=== PATIENT | female | born 1995 | race Caucasian/White ===

== ENCOUNTER → 2017-09-07 | Outpatient (CLI) | payer BC ==
[2017-09-07 15:52] LABS: BASO % 0.6 % (0.0-2.0); EOS # 0.2 (0.0-0.7); EOS % 4.4 % (0-4.0); GRAN # 3.2 (1.4-6.5); GRAN % 63.4 % (42.2-75.2); HEMATOCRIT 44.3 % (35.0-45.0); HEMOGLOBIN 14.6 g/dl (12.0-15.0); LYMPH # 1.2 (1.2-3.4); MEAN CELL VOLUME 89 fl (80.0-95.0); MEAN CORPUSCULAR HEMOGLOBIN 29 pg (26.0-32.0); MEAN CORPUSCULAR HGB CONC 33 g/dl (33.0-37.0); MEAN PLATELET VOLUME 10.2 fl (7.4-10.4); MONO # 0.4 (0.1-0.6); MONO % 7.4 % (1.7-9.3); PLATELET COUNT 291 K/mm3 (130-400); RED BLOOD COUNT 4.99 M/mm3 (4.10-5.30); REDCELL DISTRIBUTION WIDTH-CV 13.2 % (11.5-14.5)
== END ==
LOC: COL.LAB 10:13
PROVIDERS: Family Medicine
DX: L68.0 Hirsutism (principal); R53.83 Other fatigue

== ENCOUNTER → 2017-09-13 | Outpatient (CLI) | payer BC | LOC: COL.RAD 13:25 | DX: R10.32 Left lower quadrant pain (principal); L68.0 Hirsutism ==

== ENCOUNTER 2020-09-15 22:13 | Outpatient (CLI) | payer MEDICAID ==
[~2020-09-15] VITALS: Ht 165.1 cm; Wt 60.0 kg
--- NOTE | 2020-09-15 22:00 | NUR ---
Discharge instructions reviewd with pt and boyfriend. Questions invited and answered. 7600 Ambulatory off unit.
--- NOTE | 2020-09-15 22:20 | NUR ---
Ambulatory to unit, accompanied by significant other for assessment. Pt anxious, tearful, reports decreased movement "for the last couple of days, even less active today" Oriented to room, monitor, plan of care. FHT's readily obtained with audible movements.
[2020-09-15 22:30] VITALS: BP 116/75; PULSE 96; TEMP 97.8
--- NOTE | 2020-09-15 22:40 | NUR ---
EFM tracing on monitor screen reviewed with pt, acceleration pointed out. Discussed with pt that movemtn in last trimester 'feel different' as baby gets bigger and is more settled into pelvis with less room to move around.
[2020-09-15] MEDS ORDERED: PRENATAL TABLET PO (22:47)
== END 2020-09-15 23:05 | disposition home or self-care (01) ==
LOC: LDRO 22:13 → LDR 22:20 → LDRO 23:05
DX: O36.8130 Decreased fetal movements, third trimester, not applicable or unspecified (principal); Z3A.31 31 weeks gestation of pregnancy
CPT/HCPCS: OP

== ENCOUNTER 2020-11-08 14:42 | Inpatient (IN) | payer MEDICAID ==
[2020-11-08] VITALS (21 sets, daily range): BP systolic 105–1100; BP diastolic 63–82; PULSE 75–116; TEMP 97.9–98.8
[~2020-11-08] VITALS: Ht 165.1 cm; Wt 82.7 kg
[~2020-11-08 14:42] MED LIST: PRENATAL TABLET PO
--- NOTE | 2020-11-08 14:50 | NUR ---
Patient ambulates to LR5 with significant other, changes into gown, FHR/TOCO monitors. Patient states she started mahesh this morning and then they somewhat went away and then came back and are more painful. Plan of care discussed. JENNIFER Devries RN /3 Dr. Marcano called and orders obtained.
--- NOTE | 2020-11-08 16:10 | NUR ---
Plan of care discussed and questions answered. IV started in left hand, blood obtained and to lab, flushed. Consents signed and packet given.
[2020-11-08 16:43] LABS: BASO % 0.2 % (0.0-2.0); EOS % 0.1 % (0-4.0); GRAN # 13.4 (1.4-6.5); GRAN % 87.8 % (42.2-75.2); HEMOGLOBIN 12.9 g/dl (12.5-16.0); LYMPH # 0.8 (1.2-3.4); LYMPH % 5.4 % (20.0-51.0); MEAN CELL VOLUME 84 fl (80.0-100.0); MEAN CORPUSCULAR HEMOGLOBIN 29 pg (27.0-31.0); MEAN CORPUSCULAR HGB CONC 35 g/dl (33.0-37.0); MEAN PLATELET VOLUME 9.8 fl (7.4-10.4); MONO % 6.2 % (1.7-9.3); PLATELET COUNT 245 K/mm3 (130-400); REDCELL DISTRIBUTION WIDTH-CV 12.7 % (11.5-14.5)
[2020-11-08 16:44] LABS: HEMATOCRIT 36.9 % (37.0-47.0)
--- NOTE | 2020-11-08 16:54 | NUR ---
Patient off monitors to ambulate. 1740: Patient on monitors and resting in bed. 1800: Patient off monitors and knees chest position resting in bed.
--- NOTE | 2020-11-08 18:50 | NUR ---
Pt states " I think I will ready for my epidural soon" Encouraged to go to the bathroom before placed back on EFM.
--- NOTE | 2020-11-08 19:25 | NUR ---
Felicia SAND DIGGER into room for epidural placement, see anesthesia record. Pt moved to sit on edge of bed.
--- NOTE | 2020-11-08 22:00 | NUR ---
discussed with pt possibly of augmenting labor with Pitocin, pt declines augmentation at this time.
[2020-11-09] VITALS (25 sets, daily range): BP systolic 97–129; BP diastolic 59–82; PULSE 78–118; TEMP 97.8–98.6
--- NOTE | 2020-11-09 03:45 | NUR ---
SVE ant rim. FHT's with early decels to 110's, returning to basline by end of contraction.
--- NOTE | 2020-11-09 05:20 | NUR ---
Dr Marcano into room. Willis catheter dc'd Perineal prep. [address] Marcano after explanation to pt and spouse. 0532 Vacuum reapplied. 0568 Vac assisted vaginal delivery by Dr Marcano.
--- NOTE | 2020-11-09 05:44 | NUR ---
Placenta delivers spont and intact, Pitocin gtt to bolus rate.
--- NOTE | 2020-11-09 05:48 | NUR ---
Perineal inspection complete, pericare done. Bed together.
--- NOTE | 2020-11-09 06:15 | NUR ---
Bedside report reveived from Dana RODRIGUEZ. Patient resting at this time and has no needs. 0755: Patient assisted to wheelchair and to bathroom, voids, new gown/underwear/pad on. Patient assisted to wheelchair. Plan of care discussed and to nursery to watch bath.
[2020-11-10 00:46] VITALS: BP 103/62; PULSE 101; TEMP 97.5
[2020-11-10 06:45] LABS: HEMATOCRIT 30.9 % (37.0-47.0); HEMOGLOBIN 10.6 g/dl (12.5-16.0)
[2020-11-10] MEDS ORDERED: IBU600 MG PO (08:53)
[2020-11-10 09:00] VITALS: BP 105/64; PULSE 89; TEMP 98
--- NOTE | 2020-11-10 09:55 | NUR ---
Initial visit; Parents thanked Stacker Operator for offering congratulations and God's blessings for the of their daughter. Stacker Operator thanked family for choosing [facility].
[2020-11-10 17:30] VITALS: BP 129/72; PULSE 78; TEMP 98
[2020-11-10 21:30] VITALS: BP 107/67; PULSE 108; TEMP 98.1
[2020-11-11 09:00] VITALS: BP 108/88; PULSE 102; TEMP 99
--- NOTE | 2020-11-11 12:10 | NUR ---
Discharge instructions and follow up care reviewed with pt and at the bedside. Both verbalized an understanding, agreed with the plan and states no questions or concerns at this time.
== END 2020-11-11 13:45 | disposition home or self-care (01) | DRG 807 ==
LOC: LDRO 14:42 → LDR 15:06 → LDRO 16:00 → OB 16:02 → LDR 16:02 → OB 11-09 08:38
PROVIDERS: Obstetrics & Gynecology; ADMIT Obstetrics & Gynecology
PROC: 10D07Z6 Extraction of Products of Conception, Vacuum, Via Natural or Artificial Opening (ICD-10-PCS; principal; 2020-11-09)
PROC: 10907ZC Drainage of Amniotic Fluid, Therapeutic from Products of Conception, Via Natural or Artificial Opening (ICD-10-PCS; 2020-11-09)
DX: O99.344 Other mental disorders complicating childbirth (principal); Z37.0 Single live birth; F32.9 Major depressive disorder, single episode, unspecified; F41.9 Anxiety disorder, unspecified; O76 Abnormality in fetal heart rate and rhythm complicating labor and delivery; Z3A.39 39 weeks gestation of pregnancy
CPT/HCPCS: J2590; J7120